=== PATIENT | female | born 1960 | race Caucasian/White ===

== ENCOUNTER 2017-04-12 13:17 | Outpatient (CLI) | payer BC ==
--- NOTE | 2017-04-12 16:56 | RAD ---
THREE VIEWS CERVICAL SPINE: INDICATION: Radiculopathy. COMPARISON: CT of the cervical spine dated 09/02/08. FINDINGS: There has been interval performance of a C3-C4 ACDF. The ACDF spanning C5 through C7 is unchanged in position. There is moderate degenerative disk disease most pronounced at C4-5. There is moderate f acet osteoarthrosis, also most pronounced at C4-5. No acute fracture or subluxation is evident. The lateral masses are symmetric. Lung apices are clear. IMPRESSION: 1. Postoperative cervical spine. 2. Moderate multilevel spondylosis of the cervical spine. POS: [facility]
== END 2017-04-12 13:18 | disposition home or self-care (01) ==
LOC: TBSIIMAG 13:17
PROVIDERS: ATTEND Neurological Surgery
DX: M47.22 Other spondylosis with radiculopathy, cervical region (principal); Z98.890 Other specified postprocedural states
CPT/HCPCS: 72040

== ENCOUNTER 2018-06-15 08:59 | Outpatient (CLI) | payer BC ==
--- NOTE | 2018-06-15 11:20 | CT ---
CT LUMBAR SPINE WITHOUT CONTRAST: Multiple axial tomograms were obtained through the lumbar spine without IV enhancement. INDICATION: Low back pain. Recent fall with back pain. Followup back surgery. COMPARISON: Comparison is made to CT lumbar spine 02/19/2016. FINDINGS: Pedicle screws have been placed at L3, L4, and L5 since the prior CT of 2016. Posterior laminectomy defects are noted at L3-4 and L4-5. Pedicle screws appear adequately positioned. No evidence of loo sening. The lumbar vertebrae maintain height and alignment. Degenerative changes are noted with degenerative disk changes at all levels. Degenerative osteophytes in the lumbar vertebrae again noted slightly m ore prominent at L2-3 and L3-4. At L1-2, minimal disk bulge. No central canal or foraminal stenosis. At L2-3, diffuse disk bulge. Facet hypertrophy. Moderate central canal stenosis which appears to mei ve progressed when compared to 2016 exam. Bilateral foraminal narrowing more severe on the right due to disk bulge and hypertrophic change. At the L3-4 level, mild disk bulge. Prominent facet hypertrophy. Posterior laminectomy change. Rig ht foraminal encroachment due to hypertrophic change which appears to impinge on the exiting nerve ro ot as seen on sagittal images. Mild central canal stenosis. At L4-5, mild disk bulge without evidence of protrusion. Facet hypertrophy. Posterior laminectomy c hange. No evidence of central canal or foraminal stenosis. At L5-S1, minimal disk bulge. Facet hypertrophy. No significant central canal or foraminal stenosis . IMPRESSION: Postoperative changes have occurred since the prior study with pedicle screws now seen at L3, L4, and L5 levels. Pedicle screws appear adequately positioned with no evidence of loosening. Central cherelle l stenosis at L2-3 as described above. POS: [facility]
== END 2018-06-15 09:00 | disposition home or self-care (01) ==
LOC: TBSIIMAG 08:59
PROVIDERS: ATTEND Neurological Surgery
DX: M54.5 Low back pain (principal); M48.061 Spinal stenosis, lumbar region without neurogenic claudication; Z98.890 Other specified postprocedural states
CPT/HCPCS: 72131

== ENCOUNTER 2018-06-27 13:04 | Outpatient (CLI) | payer BC ==
--- NOTE | 2018-06-27 15:22 | CT ---
NONCONTRAST CT CERVICAL SPINE: Date: 06/27/18 HISTORY: Neck pain. History of fall. COMPARISON: CT myelogram on 09/02/08. FINDINGS: Postsurgical changes are again seen related to anterior cervical fusion at the C5-6 level with associ ated intradiscal prosthesis. The anterior screw in C7 is seen at the lowermost end plate of the C7 ve rtebral body with slight lucency seen adjacent to this screw. There has been interval postsurgical ch davy related to anterior cervical fusion at the C3-4 level with anterior plate and screws and intradi scal prosthesis. No additional hardware complication is appreciated. No fracture or subluxation is se en involving the cervical spine. The interspinous distances are within normal limits. C2-3 Level: No significant narrowing of the central spinal canal or neural foramina. C3-4 Level: There is posterior osteophyte formation and facet degenerative changes on the left, but no significant bony encroachment is seen on the central spinal canal. There is mild bilateral neural foraminal narrowing present. C4-5 Level: There are facet hypertrophic changes bilaterally with mild posterior osteophyte formatio n. No significant bony encroachment is seen on the central spinal canal and there is only mild encroa chment on the right neural foramen. The left neural foramen demonstrates no bony encroachment. C5-6 Level: There is no bony encroachment of the central spinal canal or neural foramina. C6-7 Level: There is posterior osteophyte formation which narrows the ventral subarachnoid space at t his level. Right neural foramen demonstrates no significant bony encroachment. There is mild left-ang ed neural foraminal narrowing present. Central osteophyte at C6-7 level encroaches on the anterior as pect of the spinal cord. C7-T1 Level: There is uncinate process hypertrophy present with narrowing of the intervertebral disc space at this level. However, there is no significant bony encroachment on the central spinal canal or neural foramina at this level. The paravertebral soft tissues are within normal limits. Again noted is hypodense nodule in the left lobe of the thyroid gland, similar in size to the prior s tudy in 2009. Slight heterogeneity of the right lobe of the thyroid gland is again present. The prevertebral soft tissues have a normal appearance. The limited visualized medial aspect of lung zones are clear. IMPRESSION: 1. Postsurgical changes cervical spine with evidence of anterior cervical fusion at C3-4 and C5-C7 l evels. The anterior screw in C7 is seen at the end plate of C7 and there is minimal lucency surroundi ng the left-sided anterior screw at this level which could be related to loosening. No additional jeniffer dware complication is seen. 2. Scattered degenerative change in the cervical spine without significant narrowing of the central spinal canal or neural foramina by bony encroachment. 3. Stable hypodense nodule left lobe of the thyroid gland. 4. No fracture or subluxation is seen involving the cervical spine. POS: [facility]
== END 2018-06-27 13:05 | disposition home or self-care (01) ==
LOC: TBSIIMAG 13:04
PROVIDERS: ATTEND Neurological Surgery
DX: M54.2 Cervicalgia (principal); M48.02 Spinal stenosis, cervical region; M47.812 Spondylosis without myelopathy or radiculopathy, cervical region; E04.1 Nontoxic single thyroid nodule; Z98.1 Arthrodesis status
CPT/HCPCS: 72125

== ENCOUNTER 2018-07-27 13:02 | Outpatient (CLI) | payer BC ==
--- NOTE | 2018-08-09 14:36 | MMO ---
Bilateral MAMMO Bilat Screen DDI. CLINICAL HISTORY: Patient is 58 years old and is seen for screening. The patient has the following family history of breast cancer: aunt. The patient has no personal history of cancer. VIEWS: The views performed were: bilateral craniocaudal and bilateral mediolateral oblique. FILMS COMPARED: The present examination has been compared to prior imaging studies performed at [facility] on 06/26/2015, 01/03/2017 and 01/06/2017. This study has been interpreted with the assistance of computer-aided detection. MAMMOGRAM FINDINGS: There are scattered fibroglandular densities. There are no suspicious masses, suspicious calcifications, or new areas of architectural distortion. IMPRESSION: THERE IS NO MAMMOGRAPHIC EVIDENCE OF MALIGNANCY. A ROUTINE FOLLOW-UP MAMMOGRAM IN 1 YEAR IS RECOMMENDED. ACR BI-RADS Category 1 - Negative MAMMOGRAPHY NOTE: 1. A negative mammogram report should not delay a biopsy if a dominant of clinically suspicious mass is present. 2. Approximately 10% to 15% of breast cancers are not detected by mammography. 3. Adenosis and dense breasts may obscure an underlying neoplasm.
== END 2018-07-27 13:03 | disposition home or self-care (01) ==
LOC: SCSMAMMO 13:02
PROVIDERS: ATTEND Family Medicine
DX: Z12.31 Encounter for screening mammogram for malignant neoplasm of breast (principal); Z80.3 Family history of malignant neoplasm of breast
CPT/HCPCS: 77067

== ENCOUNTER 2018-09-21 12:36 | Outpatient (CLI) | payer BC ==
[~2018-09-21 12:36] MED LIST: Gadobenate Dimeglumine 529 MG/1 ML (20ML VIAL) ONE
--- NOTE | 2018-09-21 14:38 | MRI ---
Exam: MRI LUMBAR SPINE WITH AND WITHOUT CONTRAST: COMPARISON: 07/31/2015 HISTORY: Lumbar radiculopathy. Low back pain, x18 years. FINDINGS: Appropriate T1 marrow signal intensity of the lumbar vertebra. Lumbar spine vertebral body height is maintained. There is no fracture. Type II Modic changes at L4-L5. 1.4 mm of anterolisthesis of L4 upon L5. No significant STIR hyperintensity to suggest vertebral body edema or ligamentous injury. Combination of type I and type II Modic changes along the left aspect of the L5-S1 disc space. Bilateral transpedicular screws at L3, L4, and L5. Associated metallic susceptibility artifact. Appropriate signal intensity of the visualized solid organs. Symmetric signal intensity of the parasp inal muscles Conus medullaris terminates at the mid to upper aspect of L1. Postcontrast images do not demonstrate any abnormal enhancement with regards to the vertebral bodies. There is no abnormal enhancement within the thecal sac, including the cauda equina and conus medullaris. T12-L1: No significant central canal stenosis. Neural foramina are mildly narrowed bilaterally. L1-L2: Mild loss of disc space height. No significant posterior disc abnormality. Neural foramina are patent bilaterally. L2-L3: Moderate loss of disc space height. Generalized disc bulge, ligament flavum thickening and fac et hypertrophy result in moderate central canal stenosis. The degree of central canal stenosis has slightly progressed since prior examination. Moderate right and mild to moderate left foraminal narr owing. Slight progression in the overall degree of foraminal stenosis. L3-L4: Posterior laminectomy defect. No significant central canal stenosis. Moderate right and mild l eft foraminal narrowing. Postcontrast images do not demonstrate any abnormal enhancement. Evaluation is limited by metallic artifact. L4-L5: Mild loss of disc space height. Posterior laminectomy defect. No significant central canal priyanka nosis. Neural foramina are mildly narrowed bilaterally. Postcontrast images do not demonstrate any abnormal enhancement. Evaluation is limited by metallic susceptibility artifact. L5-S1: Stable mild loss of disc space height. No significant canal stenosis. Neural foramina are mcclendon nt bilaterally. IMPRESSION: 1. Lumbar fusion at L3, L4, and L5. No significant central canal stenosis at the level of fusion. 2. Interval worsening degenerative disc disease at L2-L3 with resultant moderate central canal stenos is. Transcribed Date/Time: 09/21/2018 3:21 PM
--- NOTE | 2018-09-21 15:53 | MRI ---
MRI CERVICAL SPINE WITHOUT CONTRAST: Date: 09/21/18 COMPARISON: 03/31/15 CORRELATION: CT cervical spine dated 06/27/18. HISTORY: Previous fall. Neck pain. Cervical fusion. Cervical radiculopathy. FINDINGS: Limited evaluation of the cervical spine from C3 through C7 due to metallic susceptibility artifact f rom anterior fusion changes. Visualized cervical vertebra have appropriate signal intensity. No evide nce of fracture. No significant STIR hyperintensity to suggest vertebral body edema or ligamentous in jury. Visualized brain parenchyma, cervicomedullary junction, cervical cord, and the upper thoracic cord mei ve a normal size and signal intensity. C2-C3: No significant central canal stenosis or foraminal narrowing. C3-C4: There is a disc prosthesis. Broad based osteophyte ridge without significant central canal st enosis. Mild bilateral foraminal narrowing. C4-C5: Broad based disc osteophyte complex effaces the ventral subarachnoid space. Mass effect and d eformity of the cervical cord. Moderate central canal stenosis. Moderate bilateral foraminal narrowin g. There is right facet hypertrophy. C5-C6: There is a disc prosthesis. No significant central canal stenosis or foraminal narrowing. C6-C7: There is a disc prosthesis. Broad based osteophyte ridge does cause mild central canal stenos is. Mild bilateral foraminal narrowing. C7-T1: Broad based disc bulge abuts the thecal sac. There is mild central canal stenosis. Mild bilat eral foraminal narrowing. IMPRESSION: 1. Cervical fusion as above. 2. Moderate central canal stenosis at C4-C5. POS: [facility]
== END 2018-09-21 12:37 | disposition home or self-care (01) ==
LOC: BICMRI 12:36
PROVIDERS: ATTEND Neurological Surgery
DX: M51.16 Intervertebral disc disorders with radiculopathy, lumbar region (principal); M54.12 Radiculopathy, cervical region; M48.061 Spinal stenosis, lumbar region without neurogenic claudication; M48.02 Spinal stenosis, cervical region; Z98.1 Arthrodesis status
CPT/HCPCS: 72141; 72158; A9577

== ENCOUNTER 2018-11-20 11:35 | Outpatient (CLI) | payer BC ==
[2018-11-20 12:42] LABS: Hemoglobin 13.7 g/dL (12.0-16.0)
--- NOTE | 2018-11-21 13:21 | EKG ---
Test Reason : Blood Pressure : / mmHG Vent. Rate : 069 BPM Atrial Rate : 069 BPM P-R Int : 142 ms QRS Dur : 082 ms QT Int : 400 ms P-R-T Axes : 041 058 064 degrees QTc Int : 428 ms Normal sinus rhythm Nonspecific T wave abnormality Abnormal ECG Confirmed by ANAMARIA HURTADO (2) on 11/21/2018 1:20:48 PM Referred By: MADELEINE Confirmed By:ANAMARIA HURTADO
== END 2018-11-20 11:36 | disposition home or self-care (01) ==
LOC: LABBT 11:35
PROVIDERS: ATTEND Neurological Surgery
DX: Z01.818 Encounter for other preprocedural examination (principal); M54.12 Radiculopathy, cervical region; G95.9 Disease of spinal cord, unspecified
CPT/HCPCS: 85014; 85018; 93005; 93010

== ENCOUNTER 2019-01-30 07:03 | Day surgery (SDC) | payer BC ==
[2019-01-23 13:51] VITALS: BMI 32.5
[2019-01-30] MEDS ORDERED: Bupivacaine HCl 0.5%/Epinephrine 1:200,000/PF 30 ml Vial ONE (07:23)
[2019-01-30] MEDS ORDERED: Thrombin 5000 UNITS/5 ML VIAL ONE (07:23)
--- NOTE | 2019-01-30 07:28 | HP ---
HISTORY OF PRESENT ILLNESS: Ms. Caal is a 58-year-old female referred to me for multiple previous lumbar and cervical procedures, who returns now with an MRI from [place] reveals severe central canal stenosis at L3-L4 above her prior lumbar fusion site. She is symptomatic in the way of lumbar radiculopathy and some early claudication symptoms. She hopes to have this corrected surgically. PAST MEDICAL HISTORY: Back injury, cervical spine surgery, and lumbar decompression. CURRENT MEDICATIONS: 1. Tizanidine. 2. Hydrocortisone. 3. Zofran. 4. Sertraline. 5. Fentanyl. ALLERGIES: NO KNOWN DRUG ALLERGIES. PHYSICAL EXAMINATION: GENERAL: The patient is alert and oriented x3. NEUROLOGIC: Gait is antalgic and slowed. ASSESSMENT: Lumbar stenosis and radiculopathy. PLAN: Dr. Guadalupe met with the patient, reviewed imaging, advocated for a revision of L3-L4 decompression. He explained to the patient the risks, benefits, alternatives to the procedure. The patient expressed understanding and elected to move forward with surgery as discussed. I do believe the patient is mentally competent and capable of making medical decisions for herself. We will move forward with surgery as planned. Job ID: [id number]
[2019-01-30] MEDS ORDERED: Fentanyl 100 MCG/2 ML VIAL ONE ×2 (07:35→09:34)
[2019-01-30] MEDS ORDERED: Midazolam HCl 2 mg/2 ml Vial ONE (07:43)
[2019-01-30] MEDS ORDERED: Promethazine HCl 25 MG/ML VIAL ONE (09:30)
--- NOTE | 2019-01-30 14:52 | OP ---
DATE OF PROCEDURE: 01/30/2019 EXTRUSION PRESS SUPERVISOR: Morteza Duggan PA-C INDICATION: Pain. DIAGNOSIS: Lumbar stenosis with claudication and radiculopathy. PROCEDURES PERFORMED: Reoperation L2-L3 lumbar decompression. ANESTHESIA: General. DESCRIPTION OF PROCEDURE: The patient was brought into the operating room, placed under general anesthesia. She was flipped from the supine to prone position. A linear incision was planned. After prepping and draping, the incision was created. The soft tissues were swept away from midline. Self-retaining retractors were placed in the wound for optimal exposure. After confirming the appropriate level with C-arm fluoroscopy, high-speed cutting drill bit as well as 2, 3, and 4 mm Kerrison's were used to perform a laminectomy at the L2-L3 interface. There was scar tissue present from the patient's prior operation, which slowed surgical time. After decompressing the L2-L3 segment, the wound was irrigated. Hemostasis was maintained throughout. The wound was then closed in anatomic layers and a pressure dressing was applied. There were no known procedural complications. Job ID: [id number]
== END 2019-01-30 11:36 | disposition home or self-care (01) ==
LOC: SDC 07:03
PROVIDERS: ATTEND Neurological Surgery
PROC: 01NB0ZZ Release Lumbar Nerve, Open Approach (ICD-10-PCS; principal; 2019-01-30)
DX: M48.062 Spinal stenosis, lumbar region with neurogenic claudication (principal); M54.16 Radiculopathy, lumbar region; Z79.899 Other long term (current) drug therapy
CPT/HCPCS: 76000; J0670; J0690; J2250; J2550; J3010

== ENCOUNTER 2020-05-26 06:53 | Day surgery (SDC) | payer BC ==
[2020-05-25 14:37] VITALS: BMI 30.9
[2020-05-26] MEDS ORDERED: Diazepam 5 MG TAB ONE (08:06)
[2020-05-26 10:33] VITALS: BP 190/106; TEMP 98.1
--- NOTE | 2020-05-26 11:55 | CT ---
CT cervical spine with contrast: (CT cervical myelogram) DATE: 05/26/2020 HISTORY: 60-year-old female with M 54.12 cervical radiculopathy, COMPARISON: Noncontrast CT 06/27/2018 Noncontrast MRI 09/21/2018 FINDINGS: ACDF hardware remains at C3-4, and separately at C5-6-7. C1-2: No central stenosis. Minimal DJD at bilateral atlantoaxial joints. C2-3: Disc space maintained. No high-grade DJD of lateral atlantoaxial joints. No central or neural f oraminal stenosis. No high-grade facet DJD. C3-4: There are now more robust bony bridges across the C3-4 disc space between the endplates than on the prior CT, i.e. greater degree of ankylosis. No central spinal canal stenosis. No high-grade neural foraminal stenosis. Minimal/mild left neural foraminal stenosis. Moderate right facet DJD. Alan ewhat severe left facet degenerative hypertrophy with possible ankylosis. C4-5: New grade 1 anterolisthesis of C4 on C5 due to severe bilateral facet DJD. On the prior MRI, br oad-based disc protrusion in attempted the ventral surface of the spinal cord, and thickened ligamentum flavum indents it the dorsal surface of the spinal cord, resulting in severe central spina l canal stenosis. Currently, there continues to be somewhat severe central spinal canal stenosis, but there is no longer cord impingement. Perhaps this is due to possible interval slight mild decreas e in the AP dimension of the spinal cord. Moderate to large bilateral uncinate process osteophytes remain, causing moderate to severe right and moderate left neural foraminal stenosis. C5-6: No definite ankylosis across the disc space between the endplates. No high-grade central spinal canal stenosis. There are small uncinate process osteophytes, but no significant neural foraminal stenosis. Mild bilateral facet DJD. C6-7: No high-grade facet DJD. No convincing evidence of ankylosis between the endplates. Broad-based disc-osteophytic bar complex protrudes into the anterior aspect of spinal canal, abutting the ventral surface of the spinal cord, causing moderate central spinal canal stenosis. Moderate size rig ht and moderate to large left uncinate process osteophytes. Despite this. No high-grade neural foraminal stenosis. C7-T1: Mild right and moderate left facet DJD. No high-grade neural foraminal stenosis broad-based di sc protrusion. Mild to moderate central spinal canal stenosis. T1-2: Mild to moderate bilateral facet DJD. Mild bilateral neural foraminal stenosis. No central spin al canal stenosis. IMPRESSION: 1.) Status post anterior cervical discectomy and fusion at C3-4, with successful ankylosis. 2) status post anterior cervical discectomy and fusion at C5-6-7, without evidence of ankylosis. 3) cervical spondylosis consisting of multilevel degenerative disc disease and facet osteoarthrosis o f varying degrees (most severe at C3-4 and C4-5.) 4) apparently new mild grade 1 spondylolisthesis at C4-5 due to the high-grade bilateral facet osteoa rthrosis. 5) high-grade central spinal canal stenosis and high-grade neural foraminal stenosis at C4-5.
[2020-05-26] MEDS ORDERED: Iopamidol-M 300 61% 15 ML VIAL ONE (12:16)
--- NOTE | 2020-05-26 12:45 | CT ---
CT thoracic spine with contrast: (CT thoracic myelogram) 05/26/2020 HISTORY: 60-year-old female with "thoracic radiculopathy FINDINGS: ACDF hardware visualized down to C7. Multilevel mild and moderate degenerative disc disease throughout the upper, mid, and lower thoracic spine, greatest at T2-3, T3-4, and T6-7. Vertebral body heights are maintained. Unremarkable perivertebral spaces. No high-grade central spinal canal stenosis at any level in the thoracic spine. Mild lateral curvature at upper and mid thoracic spine. No high-grade scoliosis. See separate report of CT myelogram cervical spine for description of C7-T1 and T1-2 levels. T2-3: Shallow broad-based disc protrusion abuts ventral surface of cord. Mild to moderate central spi nal canal stenosis. Bilateral moderate neural foraminal stenosis. T3-4: Shallow broad-based disc protrusion. Mild central spinal canal stenosis. Moderate right and mil d left neural foraminal stenosis. T4-5: Mild to moderate right facet DJD. Mild to moderate right neural foraminal stenosis. Little or n o left neural foraminal stenosis. No central stenosis. T5-6: Shallow broad-based disc protrusion abuts and minimally indents ventral surface of cord. No sig nificant central spinal canal stenosis. Mild to moderate right and little or no left neural foraminal stenosis. T6-7: Shallow, broad-based disc-osteophyte complex indents the ventral surface of the spinal cord gre ater than at the T5-6 level. No high-grade central spinal canal stenosis. Mild bilateral neural foraminal stenosis. T7-8: No central spinal canal stenosis. No high-grade neural foraminal stenosis. T8-9: Very mild right and mild to moderate left facet DJD. Mild right and moderate left neural forami nal stenosis. No central stenosis. T8 9-10: No central stenosis. Mild right neural foraminal stenosis. No significant left neural forami nal stenosis. T10-11: No central or neural foraminal stenosis. T11-12: Minimal broad-based disc protrusion. No significant central or neural foraminal stenosis. T12-L1: Essentially normal. Conus medullaris terminates at mid L1 level. IMPRESSION: 1. Thoracic spondylosis consisting of multilevel mild and moderate degenerative disc disease. 2. Multilevel neural foraminal stenosis, mostly low-grade. Greatest on the left at T8-T9. 3. No high-grade central spinal canal stenosis at any level. 4. Small disc protrusions abutting the spinal cord at several levels, most notably at T6-7 where ther e is mild indentation of the ventral surface of the cord.
--- NOTE | 2020-05-26 14:56 | CT ---
CT lumbar spine with contrast: (CT lumbar myelogram) 05/26/2020 HISTORY: 60-year-old female with lumbar radiculopathy COMPARISON: MRI of 09/21/2018 FINDINGS: Vacuum joint phenomenon and sclerosis at bilateral SI joints. There are 5 lumbar-type vertebrae. No high-grade vertebral body loss of height. Conus medullaris terminates at L1. No clumping of cauda equina. T11-12: Minimal disc bulge. No central or neural foraminal stenosis. No high-grade disc space narrowi ng. T12-L1: No high-grade disc space narrowing. No central or neural foraminal stenosis. L1-2: Mild disc space narrowing. Multiple chronic shallow endplate defects. Mild vacuum disc phenomen on. Mild broad-based disc-osteophytic bar complex minimally indents ventral surface of thecal sac no significant central or neural foraminal stenosis. No significant interval change. L2-3: Moderate disc space narrowing, endplate irregularity, vacuum disc phenomenon, numerous tiny L2 endplate defects, and prominent lower L2 endplate sclerosis. Slight retrolisthesis of L2 on L3, plus moderately large disc bulge and or broad-based disc herniation, again is noted to indent the albert tral aspect of thecal sac; and both of these factors contribute to the central spinal canal stenosis. Moderate central spinal canal stenosis. Moderate right and mild to moderate left neural for aminal stenosis, which is difficult to compare between CT and MRI. Moderate ligamentum flavum thickening. L3-4: Bilateral pedicle screws at L3 and L4 without signs of hardware loosening or malpositioning. No central spinal canal stenosis. Superior edge of midline laminectomy defect. Mild to moderate right and minimal left neural foraminal stenosis. No significant interval change. Moderate disc space narro wing. L4-5: Large caliber of spinal canal and thecal sac due to laminectomy defect. Mild bilateral neural f oraminal stenosis. Slight grade 1 anterolisthesis of L4 on L5. Mild to moderate disc space narrowing. L5 pedicle screws with no signs of loosening or now positioning. L5-S1: Little or no disc space narrowing. Vacuum disc phenomenon. Mild to moderate right, and moderat e left neural foraminal stenosis. No central spinal canal stenosis. IMPRESSION: 1. Lumbar spondylosis with multilevel degenerative disc disease, mostly moderate. Worst level is L2-3 , moderate to severe. 2) moderate central spinal canal stenosis and moderate right neural foraminal stenosis, at L2-3. 3) bilateral pedicle screws at L3, L4, and L5. 4) status post laminectomies at L3-4 and L4-5. 5) moderate left neural foraminal stenosis at L5-S1. 6) mild-moderate osteoarthrosis of bilateral sacroiliac joints.
--- NOTE | 2020-05-26 16:02 | RAD ---
MYELOGRAM LUMBAR MYELOGRAM THORACIC MYELOGRAM CERVICAL: DATE: 05/26/2020 HISTORY: 60-year-old female with lumbar, thoracic, and cervical radiculopathy. TECHNIQUE: Signed informed consent obtained. Agricultural Equipment Operator radiographs of C-spine, T-spine, and L-spine obtained. Patient placed prone on fluoroscopy table. Skin of lower back prepared and draped in usual sterile fa shion. 25-gauge needle used to apply buffered lidocaine superficially and deeply. Level selected:L4. Approach:midline through laminectomy defect. 22-gauge spinal needle advanced into spinal canal under brief, intermittent fluoroscopy. Upon return of clear CSF, 10 mL Isovue [id number] media was injected into the intrathecal space. Spinal needle was removed. Patient tolerated procedure well. No complications. Total fluoroscopy time:1.0 minutes. Dose area product:72.0 uGy*m^2. FINDINGS: Bilateral pedicle screws at L3, L4, and L5. Laminectomy defect from L1 3-4 2 L5-S1. High-grade degenerative disc disease at L2-3. Multilevel degenerative disc disease in T-spine and C-spine. Facet DJD in C-spine levels. ACDF hardware at C3-4, and at C4-5-6. Fluoroscopic spot images demonstrate intrathecal iodinated contrast in the lumbar spinal canal and ce rvical spinal canal. IMPRESSION: 1. Postsurgical changes in C-spine and L-spine. 2. Cervical, thoracic, and lumbar spondylosis. 3. See separate report of subsequent CT lumbar myelogram.
== END 2020-05-26 10:20 | disposition home or self-care (01) ==
LOC: RAD 06:53 → EDSTATUS 08:00 → RAD 10:20
PROVIDERS: ATTEND Neurological Surgery
PROC: B01B1ZZ Fluoroscopy of Spinal Cord using Low Osmolar Contrast (ICD-10-PCS; principal; 2020-05-26)
DX: M50.11 Cervical disc disorder with radiculopathy, high cervical region (principal); M48.02 Spinal stenosis, cervical region; M43.12 Spondylolisthesis, cervical region; M47.24 Other spondylosis with radiculopathy, thoracic region; M51.14 Intervertebral disc disorders with radiculopathy, thoracic region; M48.04 Spinal stenosis, thoracic region; M47.26 Other spondylosis with radiculopathy, lumbar region; M51.16 Intervertebral disc disorders with radiculopathy, lumbar region; M48.061 Spinal stenosis, lumbar region without neurogenic claudication; M48.07 Spinal stenosis, lumbosacral region; M47.818 Spondylosis without myelopathy or radiculopathy, sacral and sacrococcygeal region; Z79.899 Other long term (current) drug therapy; Z98.1 Arthrodesis status
CPT/HCPCS: 62305; 72126; 72129; 72132; Q9967

== ENCOUNTER 2021-08-24 15:43 | Inpatient (IN) | payer BC ==
[~2021-08-24 15:43] MED LIST changes: -Gadobenate Dimeglumine 529 MG/1 ML (20ML VIAL) ONE; +Iopamidol-370 76% 500 ML 1 ML ONE
[2021-08-24] MEDS ORDERED: Aspirin Chewable 81 MG TAB ONE (16:32)
[2021-08-24] MEDS ORDERED: Nitroglycerin 2% Ointment 1 INCH/1 GM Packet ONE (16:32)
[2021-08-24] MEDS ORDERED: Furosemide 40 MG/4 ML VIAL ONE (16:32)
[2021-08-24 16:40] LABS: #Basophils 0.1 thou/uL (0.0-0.2); #Eosinphils 0.1 thou/uL (0.0-0.7); #Lymphocytes 2.3 thou/uL (1.20-3.40); #Monocytes 1.4 thou/uL (0.11-0.59); #Neutrophils 12.3 thou/uL (1.40-6.50); %Basophils 0.3 % (0.0-1.0); %Eosinophils 0.5 % (0.0-10.0); %Monocytes 8.8 % (0.0-10.0); %Neutrophils 76.3 % (42.0-75.0); Mean Corpuscular HGB CONC 31.4 g/dL (32.0-36.0); Mean Corpuscular Hemoglobin 29.7 pg (27.0-31.0); Mean Corpuscular Volume 94.8 fL (78.0-98.0); Mean Platelet Volume 6.9 fL (7.4-10.4); Platelet Count 330 thou/uL (130-400); RBC Distribution Width 14.3 % (11.5-14.5); Red Blood Cell (RBC) Count 4.69 mill/uL (4.20-5.40); White Blood Cell (WBC) Count 16.1 thou/uL (4.8-10.8)
[2021-08-24 17:05] LABS: ALT (SGPT) 229 U/L (8-55); AST (SGOT) 74 U/L (5-34); Albumin 3.8 g/dL (3.4-4.8); Alkaline Phosphatase 144 U/L (40-110); Anion Gap 15 mmol/L (10-20); BUN (Urea Nitrogen) 33 mg/dL (9.8-20.1); Bilirubin, Total 0.6 mg/dL (0.2-1.2); Calc. Creatinine Clearance 0 mL/min (70-130); Calcium 9.2 mg/dL (7.8-10.44); Carbon Dioxide 18 mmol/L (23-31); Chloride 109 mmol/L (98-107); Globulin 2.8 g/dL (2.4-3.5); Glucose 121 mg/dL (80-115); Lipase 34 U/L (8-78); Magnesium 1.8 mg/dL (1.6-2.6); Potassium 4.4 mmol/L (3.5-5.1); Protein, Total 6.6 g/dL (5.8-8.1); Sodium 138 mmol/L (136-145)
[2021-08-24 17:26] LABS: CKMB 3.4 ng/mL (0-6.6)
[2021-08-24] MEDS ORDERED: Enoxaparin Sodium 80 MG/0.8 ML SYRINGE ONE (17:48)
[2021-08-24] MEDS ORDERED: hydrALAZINE 20 MG/ML VIAL SLOW IVP PRN (19:31)
[2021-08-24] MEDS ORDERED: Electrolyte Replacement Protocol 1 EACH FS SCH (19:45)
[2021-08-24] MEDS: Atorvastatin Calcium 40 MG TAB PO SCH (21:51)
[2021-08-24 22:13] VITALS: BMI 33.3
[2021-08-25] MEDS ORDERED: Magnesium 2 GM/50 ML(in water) 2 GM in Premix Bag 1 BAG IVPB SCH (00:30)
[2021-08-25 04:33] LABS: #Basophils 0.1 thou/uL (0.0-0.2); #Eosinphils 0.1 thou/uL (0.0-0.7); #Lymphocytes 2.7 thou/uL (1.20-3.40); #Monocytes 1.3 thou/uL (0.11-0.59); #Neutrophils 10.4 thou/uL (1.40-6.50); %Basophils 0.5 % (0.0-1.0); %Eosinophils 0.5 % (0.0-10.0); %Lymphocytes 18.7 % (21.0-51.0); %Monocytes 8.9 % (0.0-10.0); %Neutrophils 71.4 % (42.0-75.0); Mean Corpuscular HGB CONC 31.6 g/dL (32.0-36.0); Mean Corpuscular Hemoglobin 29.9 pg (27.0-31.0); Mean Corpuscular Volume 94.4 fL (78.0-98.0); Mean Platelet Volume 6.8 fL (7.4-10.4); Platelet Count 311 thou/uL (130-400); RBC Distribution Width 14.4 % (11.5-14.5); Red Blood Cell (RBC) Count 4.35 mill/uL (4.20-5.40); White Blood Cell (WBC) Count 14.5 thou/uL (4.8-10.8)
[2021-08-25 04:36] LABS: Hemoglobin A1c 5.9 % (4.0-6.0)
[2021-08-25 04:54] LABS: Anion Gap 13 mmol/L (10-20); BUN (Urea Nitrogen) 34 mg/dL (9.8-20.1); Calc. Creatinine Clearance 80 mL/min (70-130); Calcium 8.6 mg/dL (7.8-10.44); Carbon Dioxide 22 mmol/L (23-31); Cardiac Risk 4.8 (Less than 4.5); Chloride 107 mmol/L (98-107); Cholesterol 139 mg/dl (< 200 Desired); Glucose 100 mg/dL (80-115); HDL Cholesterol 29 mg/dL (>60 Neg Risk); LDL Cholesterol, Calculated 89 mg/dL; Magnesium 2.1 mg/dL (1.6-2.6); Potassium 3.5 mmol/L (3.5-5.1); Sodium 138 mmol/L (136-145); Triglycerides 103 mg/dL (Less than 150)
[2021-08-25] MEDS: Furosemide 40 MG/4 ML VIAL SLOW IVP SCH ×2 (05:11→15:30)
[2021-08-25] MEDS ORDERED: Potassium Chloride 20 MEQ TAB PO SCH (05:45)
[2021-08-25] MEDS ORDERED: HYDROcodone/Acetaminophen 5/325 mg Tablet PO SCH (05:45)
[2021-08-25] MEDS: Aspirin Chewable 81 MG TAB PO SCH (08:57)
[2021-08-25] MEDS ORDERED: Enoxaparin Sodium 40 MG/0.4 ML SYRINGE SC SCH (09:00)
[2021-08-25] MEDS ORDERED: Acetaminophen/Codeine 30-300mg Tablet PO PRN (11:34)
[2021-08-25] MEDS: tiZANidine HCl 4 MG TAB PO PRN (11:59)
[2021-08-25 12:03] LABS: SARS-CoV-2 PCR by NAA Not Detected (NotDetected)
[2021-08-25 13:20] LABS: Bacteria/HPF None Seen HPF (None Seen); Bilirubin Negative (Negative); Blood, Urine Negative (Negative); Clarity Clear (Clear); Glucose, Urine (Dipstick) Normal (Negative); Ketone, Urine Negative (Negative); Leukocyte Negative Leu/uL (Negative); Nitrite Negative (Negative); Protein, Urine (Dipstick) 20 mg/dL (Neg-Trace); RBC/HPF 0-3 HPF (0-3); Specific Gravity, Urine 1.013 (1.002-1.036); Squamous Epithelial 0-3 HPF (0-3); Urobilinogen Normal mg/dL (Less than 2); WBC/HPF 0-3 HPF (0-3)
[2021-08-25 13:23] LABS: Urine Culture Reflex No No
[2021-08-25] MEDS: Carvedilol 3.125 MG TAB PO SCH (19:32)
[2021-08-25] MEDS: Atorvastatin Calcium 40 MG TAB PO SCH (20:57)
[2021-08-25] MEDS: Enoxaparin Sodium 80 MG/0.8 ML SYRINGE SC SCH (20:57)
[2021-08-26 04:39] LABS: Hemoglobin 12.7 g/dL (12.0-16.0); Mean Corpuscular HGB CONC 31.3 g/dL (32.0-36.0); Mean Corpuscular Hemoglobin 29.6 pg (27.0-31.0); Mean Corpuscular Volume 94.8 fL (78.0-98.0); Mean Platelet Volume 6.8 fL (7.4-10.4); Platelet Count 341 thou/uL (130-400); RBC Distribution Width 14.4 % (11.5-14.5); Red Blood Cell (RBC) Count 4.29 mill/uL (4.20-5.40); White Blood Cell (WBC) Count 11.5 thou/uL (4.8-10.8)
[2021-08-26 05:00] LABS: Anion Gap 13 mmol/L (10-20); BUN (Urea Nitrogen) 37 mg/dL (9.8-20.1); Calc. Creatinine Clearance 75 mL/min (70-130); Calcium 8.6 mg/dL (7.8-10.44); Carbon Dioxide 24 mmol/L (23-31); Chloride 105 mmol/L (98-107); Glucose 100 mg/dL (80-115); Sodium 138 mmol/L (136-145)
[2021-08-26] MEDS: Furosemide 40 MG/4 ML VIAL SLOW IVP SCH (06:01)
[2021-08-26] MEDS: Ondansetron PF 4 MG/2 ML Vial IVP PRN ×3 (06:39→17:36)
[2021-08-26] MEDS ORDERED: Lisinopril 10 MG TAB PO SCH (09:00)
[2021-08-26] MEDS ORDERED: Lisinopril 5 MG TAB PO SCH (09:00)
[2021-08-26] MEDS: Enoxaparin Sodium 80 MG/0.8 ML SYRINGE SC SCH (09:12)
[2021-08-26] MEDS: Aspirin Chewable 81 MG TAB PO SCH (09:12)
[2021-08-26] MEDS: Carvedilol 3.125 MG TAB PO SCH ×2 (09:23→17:48)
[2021-08-26] MEDS: Furosemide 40 MG TAB PO SCH (14:39)
[2021-08-26] MEDS: Atorvastatin Calcium 40 MG TAB PO SCH (20:18)
[2021-08-27 04:52] LABS: ALT (SGPT) 103 U/L (8-55); AST (SGOT) 38 U/L (5-34); Albumin 3.1 g/dL (3.4-4.8); Alkaline Phosphatase 102 U/L (40-110); Anion Gap 13 mmol/L (10-20); BUN (Urea Nitrogen) 30 mg/dL (9.8-20.1); Bilirubin, Total 0.5 mg/dL (0.2-1.2); Calc. Creatinine Clearance 89 mL/min (70-130); Calcium 8.3 mg/dL (7.8-10.44); Carbon Dioxide 26 mmol/L (23-31); Chloride 104 mmol/L (98-107); Globulin 2.6 g/dL (2.4-3.5); Glucose 101 mg/dL (80-115); Protein, Total 5.7 g/dL (5.8-8.1); Sodium 139 mmol/L (136-145)
[2021-08-27] MEDS: Carvedilol 3.125 MG TAB PO SCH ×2 (08:50→19:51)
[2021-08-27] MEDS: Enoxaparin Sodium 40 MG/0.4 ML SYRINGE SC SCH (08:51)
[2021-08-27] MEDS: Furosemide 40 MG TAB PO SCH ×2 (08:52→14:33)
[2021-08-27] MEDS: Aspirin Chewable 81 MG TAB PO SCH (08:54)
[2021-08-27] MEDS ORDERED: Communication Order-Pharmacy FS SCH (12:15)
[2021-08-27] MEDS: Atorvastatin Calcium 40 MG TAB PO SCH (21:04)
[2021-08-27] MEDS: tiZANidine HCl 4 MG TAB PO PRN (21:05)
[2021-08-28 05:15] LABS: Anion Gap 14 mmol/L (10-20); BUN (Urea Nitrogen) 22 mg/dL (9.8-20.1); Calc. Creatinine Clearance 97 mL/min (70-130); Calcium 8.6 mg/dL (7.8-10.44); Carbon Dioxide 26 mmol/L (23-31); Chloride 104 mmol/L (98-107); Glucose 96 mg/dL (80-115); Potassium 3.8 mmol/L (3.5-5.1); Sodium 140 mmol/L (136-145)
[2021-08-28] MEDS: Furosemide 40 MG TAB PO SCH ×2 (10:08→15:41)
[2021-08-28] MEDS: Carvedilol 3.125 MG TAB PO SCH ×2 (10:09→17:59)
[2021-08-28] MEDS: Enoxaparin Sodium 40 MG/0.4 ML SYRINGE SC SCH (10:10)
[2021-08-28] MEDS: Aspirin Chewable 81 MG TAB PO SCH (10:10)
[2021-08-28] MEDS: Atorvastatin Calcium 40 MG TAB PO SCH (21:06)
[2021-08-28] MEDS: tiZANidine HCl 4 MG TAB PO PRN (21:06)
[2021-08-29 05:06] LABS: Anion Gap 13 mmol/L (10-20); BUN (Urea Nitrogen) 20 mg/dL (9.8-20.1); Calc. Creatinine Clearance 96 mL/min (70-130); Calcium 8.5 mg/dL (7.8-10.44); Carbon Dioxide 27 mmol/L (23-31); Chloride 106 mmol/L (98-107); Glucose 103 mg/dL (80-115); Magnesium 1.6 mg/dL (1.6-2.6); Potassium 4.1 mmol/L (3.5-5.1); Sodium 142 mmol/L (136-145)
[2021-08-29] MEDS ORDERED: Magnesium 2 GM/50 ML(in water) 2 GM in Premix Bag 1 BAG IVPB SCH (05:15)
[2021-08-29] MEDS: Enoxaparin Sodium 40 MG/0.4 ML SYRINGE SC SCH (09:58)
[2021-08-29] MEDS: Furosemide 40 MG TAB PO SCH (09:59)
[2021-08-29] MEDS: Empagliflozin 10 MG TAB PO SCH (09:59)
[2021-08-29] MEDS: Carvedilol 3.125 MG TAB PO SCH ×2 (09:59→16:52)
[2021-08-29] MEDS: Aspirin 81 mg Enteric Coated Tablet PO SCH (09:59)
[2021-08-29] MEDS: tiZANidine HCl 4 MG TAB PO PRN (12:34)
[2021-08-29 20:18] LABS: Magnesium 2.1 mg/dL (1.6-2.6)
[2021-08-29] MEDS: Atorvastatin Calcium 40 MG TAB PO SCH (20:41)
[2021-08-30 04:09] LABS: #Basophils 0.1 thou/uL (0.0-0.2); #Eosinphils 0.2 thou/uL (0.0-0.7); #Lymphocytes 3.1 thou/uL (1.20-3.40); %Basophils 0.9 % (0.0-1.0); %Eosinophils 1.5 % (0.0-10.0); %Lymphocytes 26.8 % (21.0-51.0); %Monocytes 9.1 % (0.0-10.0); %Neutrophils 61.6 % (42.0-75.0); Hemoglobin 14.2 g/dL (12.0-16.0); Mean Corpuscular HGB CONC 31.2 g/dL (32.0-36.0); Mean Corpuscular Hemoglobin 29.6 pg (27.0-31.0); Mean Corpuscular Volume 94.9 fL (78.0-98.0); Mean Platelet Volume 6.6 fL (7.4-10.4); Platelet Count 354 thou/uL (130-400); RBC Distribution Width 14.4 % (11.5-14.5); Red Blood Cell (RBC) Count 4.78 mill/uL (4.20-5.40); White Blood Cell (WBC) Count 11.4 thou/uL (4.8-10.8)
[2021-08-30 04:36] LABS: Anion Gap 16 mmol/L (10-20); BUN (Urea Nitrogen) 18 mg/dL (9.8-20.1); Calc. Creatinine Clearance 94 mL/min (70-130); Calcium 8.8 mg/dL (7.8-10.44); Carbon Dioxide 23 mmol/L (23-31); Chloride 103 mmol/L (98-107); Glucose 92 mg/dL (80-115); Magnesium 2.1 mg/dL (1.6-2.6); Potassium 3.7 mmol/L (3.5-5.1); Sodium 138 mmol/L (136-145)
[2021-08-30] MEDS: Carvedilol 3.125 MG TAB PO SCH ×2 (05:40→17:02)
[2021-08-30] MEDS: Aspirin 81 mg Enteric Coated Tablet PO SCH (05:41)
[2021-08-30] MEDS: Empagliflozin 10 MG TAB PO SCH (05:41)
[2021-08-30] MEDS ORDERED: Sodium Chloride 0.9% 1,000 ML IV SCH ×2 (06:00→09:02)
[2021-08-30] MEDS ORDERED: Heparin 10,000 UNITS/ 10 ML VIAL ONE (07:29)
[2021-08-30] MEDS ORDERED: Lidocaine 1% (PF) 30 ML VIAL ONE (07:29)
[2021-08-30] MEDS ORDERED: Protamine Sulfate 50 MG/5 ML VIAL ONE ×2 (07:40→08:34)
[2021-08-30] MEDS ORDERED: Midazolam HCl 2 mg/2 ml Vial ONE (08:10)
[2021-08-30] MEDS ORDERED: Fentanyl 100 MCG/2 ML VIAL ONE (08:10)
[2021-08-30] MEDS ORDERED: Nitroglycerin 0.4 MG TAB (25 Tab Bottle) SL PRN (09:00)
[2021-08-30] MEDS ORDERED: Furosemide 20 MG TAB PO SCH (09:00)
[2021-08-30] MEDS ORDERED: Sodium Chloride 0.9% 200 ML IV PRN (09:00)
[2021-08-30] MEDS ORDERED: Acetaminophen/Codeine 30-300mg Tablet PO PRN (09:00)
[2021-08-30] MEDS ORDERED: Iopamidol 370 76% 50 ML VIAL FS ONE (09:27)
[2021-08-30] MEDS ORDERED: Iopamidol 370 76% 100 ML VIAL ONE (09:27)
[2021-08-30] MEDS: Acetaminophen/Codeine 30-300mg Tablet PO PRN (10:46)
[2021-08-30] MEDS: Furosemide 20 MG TAB PO SCH (14:03)
[2021-08-30] MEDS: Atorvastatin Calcium 40 MG TAB PO SCH (20:46)
[2021-08-31] MEDS ORDERED: Sodium Chloride 0.9% 250 ML IVPB SCH (04:45)
[2021-08-31 05:11] LABS: ALT (SGPT) 49 U/L (8-55); AST (SGOT) 46 U/L (5-34); Alkaline Phosphatase 60 U/L (40-110); Anion Gap 12 mmol/L (10-20); BUN (Urea Nitrogen) 20 mg/dL (9.8-20.1); Bilirubin, Total 0.7 mg/dL (0.2-1.2); Calc. Creatinine Clearance 81 mL/min (70-130); Calcium 8.2 mg/dL (7.8-10.44); Carbon Dioxide 25 mmol/L (23-31); Chloride 106 mmol/L (98-107); Globulin 2.4 g/dL (2.4-3.5); Glucose 95 mg/dL (80-115); Potassium 4.1 mmol/L (3.5-5.1); Protein, Total 5.4 g/dL (5.8-8.1); Sodium 139 mmol/L (136-145)
[2021-08-31] MEDS: Aspirin 81 mg Enteric Coated Tablet PO SCH (09:41)
[2021-08-31] MEDS: Empagliflozin 10 MG TAB PO SCH (09:41)
[2021-08-31] MEDS: Furosemide 20 MG TAB PO SCH ×2 (09:41→15:29)
[2021-08-31] MEDS ORDERED: Carvedilol 3.125 MG TAB PO SCH (18:00)
[2021-08-31] MEDS: Atorvastatin Calcium 40 MG TAB PO SCH (20:27)
[2021-09-01 00:48] LABS: SARS-CoV-2 PCR by NAA Not Detected (NotDetected)
[2021-09-01 07:45] LABS: Chloride 108 mmol/L (98-107); Potassium 4.5 mmol/L (3.5-5.1); Sodium 140 mmol/L (136-145)
[2021-09-01 07:46] LABS: Glucose 87 mg/dL (80-115)
[2021-09-01 07:48] LABS: Anion Gap 14 mmol/L (10-20); Carbon Dioxide 23 mmol/L (23-31)
[2021-09-01 07:49] LABS: Calc. Creatinine Clearance 84 mL/min (70-130)
[2021-09-01 07:50] LABS: BUN (Urea Nitrogen) 18 mg/dL (9.8-20.1)
[2021-09-01 07:52] LABS: Calcium 9.5 mg/dL (7.8-10.44)
[2021-09-01] MEDS: Carvedilol 3.125 MG TAB PO SCH ×2 (09:53→16:39)
[2021-09-01] MEDS: Empagliflozin 10 MG TAB PO SCH (09:54)
[2021-09-01] MEDS: Aspirin 81 mg Enteric Coated Tablet PO SCH (09:54)
[2021-09-01] MEDS: Furosemide 20 MG TAB PO SCH ×2 (09:55→14:57)
[2021-09-01] MEDS: Atorvastatin Calcium 40 MG TAB PO SCH (20:52)
[2021-09-01] MEDS: Acetaminophen/Codeine 30-300mg Tablet PO PRN (20:52)
[2021-09-01] MEDS: tiZANidine HCl 4 MG TAB PO PRN (20:52)
[2021-09-02 05:18] LABS: Anion Gap 16 mmol/L (10-20); BUN (Urea Nitrogen) 20 mg/dL (9.8-20.1); Calc. Creatinine Clearance 85 mL/min (70-130); Calcium 8.9 mg/dL (7.8-10.44); Carbon Dioxide 21 mmol/L (23-31); Chloride 106 mmol/L (98-107); Glucose 75 mg/dL (80-115); Potassium 3.9 mmol/L (3.5-5.1); Sodium 139 mmol/L (136-145)
[2021-09-02] MEDS: Carvedilol 3.125 MG TAB PO SCH (09:39)
[2021-09-02] MEDS: Aspirin 81 mg Enteric Coated Tablet PO SCH (09:40)
[2021-09-02] MEDS: Furosemide 20 MG TAB PO SCH ×2 (09:40→15:08)
[2021-09-02] MEDS: Empagliflozin 10 MG TAB PO SCH (09:40)
[2021-09-02 12:22] VITALS: BP 104/66; TEMP 97.3
[2021-09-02] MEDS: Acetaminophen/Codeine 30-300mg Tablet PO PRN (14:37)
== END 2021-09-02 14:53 | disposition short-term general hospital (02) | DRG 280 ==
LOC: ERS 15:43 → 2NO 17:38
PROVIDERS: ADMIT Internal Medicine; ATTEND Internal Medicine
PROC: 4A023N7 Measurement of Cardiac Sampling and Pressure, Left Heart, Percutaneous Approach (ICD-10-PCS; principal; 2021-08-30)
PROC: B2111ZZ Fluoroscopy of Multiple Coronary Arteries using Low Osmolar Contrast (ICD-10-PCS; 2021-08-30)
PROC: B2151ZZ Fluoroscopy of Left Heart using Low Osmolar Contrast (ICD-10-PCS; 2021-08-30)
DX: I25.5 Ischemic cardiomyopathy (principal); I50.23 Acute on chronic systolic (congestive) heart failure; I21.A1 Myocardial infarction type 2; N17.9 Acute kidney failure, unspecified; E87.2 Acidosis; I13.0 Hypertensive heart and chronic kidney disease with heart failure and stage 1 through stage 4 chronic kidney disease, or unspecified chronic kidney disease; N18.2 Chronic kidney disease, stage 2 (mild); E87.6 Hypokalemia; E66.9 Obesity, unspecified; E83.42 Hypomagnesemia; R79.89 Other specified abnormal findings of blood chemistry; F41.9 Anxiety disorder, unspecified; I25.10 Atherosclerotic heart disease of native coronary artery without angina pectoris; R94.5 Abnormal results of liver function studies; K76.1 Chronic passive congestion of liver; I95.9 Hypotension, unspecified; I08.3 Combined rheumatic disorders of mitral, aortic and tricuspid valves; D72.829 Elevated white blood cell count, unspecified; F32.A Depression, unspecified; G89.29 Other chronic pain; M54.50 Low back pain, unspecified; Z20.822 Contact with and (suspected) exposure to COVID-19; Z68.30 Body mass index [BMI] 30.0-30.9, adult; Z79.82 Long term (current) use of aspirin; Z79.899 Other long term (current) drug therapy; Z90.722 Acquired absence of ovaries, bilateral; Z98.1 Arthrodesis status; Z98.890 Other specified postprocedural states
CPT/HCPCS: 36415; 71045; 71275; 80048; 80053; 80061; 81001; 82553; 83036; 83690; 83735; 83880; 84145; 84443; 84484; 85025; 85027; 85347; 93005; 93306; 93458; 93798; 94760; 96372; 96374; 99152; J0360; J1644; J1650; J1940; J2001; J2250; J2405; J2720; J3010; J3475; J7030; J7050; Q9967; U0003; U0005

== ENCOUNTER 2022-07-26 13:02 | Outpatient (CLI) | payer BC | END 2022-07-26 13:03 | disposition home or self-care (01) | LOC: BICCT 13:02 | PROVIDERS: ATTEND Anesthesiology Pain Medicine | DX: S32.009K Unspecified fracture of unspecified lumbar vertebra, subsequent encounter for fracture with nonunion (principal); M51.36 Other intervertebral disc degeneration, lumbar region; Z98.890 Other specified postprocedural states | CPT/HCPCS: 72131 ==

== ENCOUNTER 2023-03-22 15:03 | Outpatient (CLI) | payer BC | END 2023-03-22 15:04 | disposition home or self-care (01) | LOC: SCSRAD 15:03 | PROVIDERS: ATTEND Nurse Practitioner Family | DX: S69.92XA Unspecified injury of left wrist, hand and finger(s), initial encounter (principal) ==

== ENCOUNTER 2024-12-27 12:49 | Emergency (ER) | payer MEDICARE, BC ==
[2024-12-27] MEDS ORDERED: Ketorolac Tromethamine 30 MG (1 mL) VIAL ONE (14:40)
== END 2024-12-27 15:45 | disposition home or self-care (01) ==
LOC: ERS 12:49
DX: M17.12 Unilateral primary osteoarthritis, left knee (principal); M16.12 Unilateral primary osteoarthritis, left hip; M25.462 Effusion, left knee; I25.2 Old myocardial infarction; X50.1XXA Overexertion from prolonged static or awkward postures, initial encounter
CPT/HCPCS: 72170; 73502; 73564; J1885; 96372

== ENCOUNTER 2025-03-31 13:40 | Outpatient (CLI) | payer MEDICARE, BC | END 2025-03-31 13:41 | disposition home or self-care (01) | LOC: SCSRAD 13:40 | PROVIDERS: ATTEND Family Medicine | DX: M79.605 Pain in left leg (principal) ==